=== PATIENT | male | born 1960 | race Caucasian/White ===

== ENCOUNTER → 2017-03-30 | Outpatient (CLI) | payer OTHER ==
[~2017-03-30] MED LIST: AMLO10TA2 PO; FLUT50SP EACH NARE; MEDICAL COMPRES1 MI3
--- NOTE | 2017-03-30 16:29 | RADRPT ---
EXAM DATE/TIME: 03/30/2017 15:29 [place] COMPARISON: No previous studies available for comparison. INDICATIONS : Chronic cough for several years. MEDICAL HISTORY : None. SURGICAL HISTORY : None. ENCOUNTER: Initial ACUITY: >1 year PAIN SCORE: 0/10 LOCATION: Bilateral chest FINDINGS: The heart size is mildly enlarged. The lungs demonstrate mild prominence in the interstitium diffuse ly. A focal alveolar consolidation is not seen. No effusion is seen. CONCLUSION: Mild prominence of the interstitium which may represent underlying mild interstitial disease. This is nonspecific and can be seen with inhalational processes, certain infections, or pul monary venous hypertension. Aditya Johnson MD on March 30, 2017 at 16:18 Board Certified Radiologist. This report was verified electronically.
== END ==
LOC: HRAD 15:11
PROVIDERS: ATTEND Family Medicine
DX: R05 Cough (principal)
CPT/HCPCS: 71020